=== PATIENT | female | born 1990 | race Two or more races ===

== ENCOUNTER 2018-01-07 15:57 | Emergency (ER) | payer MEDICAID, OTHER ==
[~2018-01-07] VITALS: Ht 152.4 cm; Wt 68.0 kg
[2018-01-07 16:09] VITALS: BP 104/68
[2018-01-07 16:46] LABS: Urine Bacteria NONE SEEN /hpf (None Seen); Urine Blood Negative /uL (Negative); Urine Mucus FEW (None Seen); Urine Specific Gravity 1.037 (1.001-1.035); Urine WBC 37 /hpf (0 - 5)
[2018-01-07 16:55] LABS: Basophils # (auto) 0.1 uL; Basophils % (auto) 1.3 % (0.0-2.0); Eosinophils # (auto) 0.2 uL; Eosinophils % (auto) 2.8 % (0.0-7.0); Hematocrit 31.4 % (36.0-46.0); Hemoglobin 10.5 g/dL (12.2-16.2); Lymphocytes # (auto) 1.4 uL; Mean Corpuscular Hemoglobin 28.2 pg (28.0-32.0); Mean Corpuscular Hgb Conc. 33.6 g/dL (32.0-36.0); Mean Corpuscular Volume 83.9 fL (80.0-100.0); Monocytes # (auto) 0.4 uL; Neutrophils # (auto) 3.5 uL; Neutrophils % (auto) 63.9 % (37.0-80.0); Platelet Count (auto) 324 10^3/uL (140-450); Red Blood Cells 3.74 10^6/uL (4.0-5.20); Red Cell Distribution Width 15.5 % (11.8-14.3); White Blood Cell 5.4 10^3/uL (4.4-10.8)
[2018-01-07 17:44] LABS: Alanine Aminotransferase 34 U/L (13-56); Albumin 3.4 g/dL (3.4-5.0); Alkaline Phosphatase 104 U/L (45-117); Anion Gap 9 (5-15); Aspartate Aminotransferase 31 U/L (15-37); Bilirubin, Total 0.4 mg/dL (0.2-1.0); Blood Urea Nitrogen 14 mg/dL (7-18); Calcium 8.4 mg/dL (8.5-10.1); Carbon Dioxide 21 mmol/L (21-32); Chloride 110 mmol/L (98-107); GFR African American 170 mL/min; GFR Non-African American 140 mL/min; Potassium 3.5 mmol/L (3.5-5.1); Sodium 140 mmol/L (136-145); Total Protein 8.4 g/dL (6.4-8.2)
[2018-01-07 17:52] LABS: Glucose 83 mg/dL (74-106)
== END 2018-01-07 18:53 | disposition home or self-care (01) ==
LOC: ER 15:57
DX: N39.0 Urinary tract infection, site not specified (principal); I10 Essential (primary) hypertension
CPT/HCPCS: 36415; 71045; 80053; 81001; 81025; 84484; 85025; 93005

== ENCOUNTER 2019-06-24 22:49 | Emergency (ER) | payer MEDICAID ==
[~2019-06-24] VITALS: Ht 162.6 cm; Wt 70.8 kg
[2019-06-24 22:57] VITALS: BP 118/77
[2019-06-24 23:16] LABS: Basophils # (auto) 0 uL; Basophils % (auto) 0.5 % (0.0-2.0); Eosinophils # (auto) 0.2 uL; Eosinophils % (auto) 3.1 % (0.0-7.0); Hematocrit 36.7 % (36.0-46.0); Lymphocytes # (auto) 1.3 uL; Lymphocytes % (auto) 24.6 % (10.0-50.0); Mean Corpuscular Hemoglobin 29.5 pg (28.0-32.0); Mean Corpuscular Hgb Conc. 32.7 g/dL (32.0-36.0); Mean Corpuscular Volume 90.4 fL (80.0-100.0); Monocytes # (auto) 0.3 uL; Monocytes % (auto) 5.5 % (0.0-12.0); Neutrophils # (auto) 3.4 uL; Neutrophils % (auto) 66.3 % (37.0-80.0); Nucleated Red Blood Cells % 0.1 %; Platelet Count (auto) 302 10^3/uL (140-450); Red Blood Cells 4.06 10^6/uL (4.0-5.20); Red Cell Distribution Width 15.6 % (11.8-14.3); White Blood Cell 5.1 10^3/uL (4.4-10.8)
[2019-06-24 23:35] LABS: Alanine Aminotransferase 30 U/L (13-56); Albumin 3.3 g/dL (3.4-5.0); Anion Gap 7 (5-15); Aspartate Aminotransferase 26 U/L (15-37); BUN/Creatinine Ratio 17.6; Blood Urea Nitrogen 12 mg/dL (7-18); Calcium 8.3 mg/dL (8.5-10.1); Carbon Dioxide 24 mmol/L (21-32); Chloride 106 mmol/L (98-107); GFR African American 135 mL/min; GFR Non-African American 111 mL/min; Glucose 99 mg/dL (74-106); Potassium 4.1 mmol/L (3.5-5.1); Sodium 137 mmol/L (136-145)
[2019-06-24 23:40] LABS: Alkaline Phosphatase 99 U/L (45-117); Bilirubin, Total 0.4 mg/dL (0.2-1.0); Total Protein 8.5 g/dL (6.4-8.2)
== END 2019-06-25 01:33 | disposition left against medical advice (07) ==
LOC: ER 22:49
DX: R07.89 Other chest pain (principal); Z53.21 Procedure and treatment not carried out due to patient leaving prior to being seen by health care provider
CPT/HCPCS: 36415; 80053; 84484; 85025